=== PATIENT | female | born 1995 | race Caucasian/White ===

== ENCOUNTER → 2018-03-17 | Outpatient (CLI) | payer BC ==
--- NOTE | 2018-03-17 15:01 | US ---
EXAMINATION TYPE: US thyroid st tissue head/neck DATE OF EXAM: 03/17/2018 COMPARISON: NONE CLINICAL HISTORY: E04.9 ENLARGED THYROID. no prev issues GLAND SIZE: Right Lobe: 4.2 x 1.3 x 1.6 cm Overall Parenchyma: homogenous Left Lobe: 4.2 x 1.2 x 1.5 cm Overall Parenchyma: homogeneous Isthmus Thickness: 0.3 cm NODULES RIGHT: # of nodules measured on right: 0 LEFT: # of nodules measured on left: 0 ISTHMUS: # of nodules measured in the isthmus: 0 Bilateral neck scanned, no evidence of lymphadenopathy. IMPRESSION: No distinct abnormality appreciated.
== END | disposition home or self-care (01) ==
LOC: RADUSWWP 13:38
PROVIDERS: ATTEND Obstetrics & Gynecology
DX: E04.9 Nontoxic goiter, unspecified (principal)
CPT/HCPCS: 76536

== ENCOUNTER 2018-09-28 15:43 | Inpatient (IN) | payer OTHER ==
--- NOTE | 2018-09-28 17:48 | P.HPOB ---
History of Present Illness H&P Date: 09/28/18 Chief Complaint: IUP at 38 3/sevenths weeks, active labor This is a pleasant 23-year-old 1 para 0 at 38-3/7 weeks that presents to labor and delivery with complaints of contractions that started this morning and recently got worse. Patient states she's been ruby every 5 minutes and there increasingly uncomfortable. Patient denies loss of fluid vaginal bleeding, and notes the fetus has been active. Patient is been receiving routine care with Dr. Wallis On blood work a blood type of O+, rubella immune, RPR nonreactive, hepatitis B surface antigen negative, HIV negative, GBS negative on 09/09/18. Review of Systems Constitutional: Denies chills, Denies fatigue, Denies fever Ears, nose, mouth and throat: Denies headache Cardiovascular: Denies edema, Denies leg edema Respiratory: Denies cough, Denies dyspnea Gastrointestinal: Denies constipation, Denies diarrhea, Denies nausea, Denies vomiting Genitourinary: Reports Past Medical History History of Any Multi-Drug Resistant Organisms: None Reported Smoking Status: Never smoker Medications and Allergies Home Medications Medication Instructions Recorded Confirmed Type Pnv No.95/Ferrous Fum/Folic AC 1 tab PO DAILY 09/28/18 09/28/18 History [ Multivitamin Tablet] Allergies Allergy/AdvReac Type Severity Reaction Status Date / Time No Known Allergies Allergy Verified 09/28/18 15:54 Exam Osteopathic Statement: *. No significant issues noted on an osteopathic structural exam other than those noted in the History and Physical/Consult. Intake and Output 09/28/18 09/28/18 09/28/18 06:59 14:59 22:59 Other: Weight 64.093 kg Targeted physical exam was performed and general this is a well-nourished well- developed female in no acute distress, she is uncomfortable when contractions, proximal labor 5 minutes. Patient is noted to have nonlabored breathing, abdomen is gravid and appropriate for gestational age, on cervical exam she is 6/100/-1 amniotomy was performed and clear fluid was obtained. Assessment and Plan (1) Term Current Visit: Yes Status: Acute Code(s): Z34.80 - ENCOUNTER FOR SUPRVSN OF NORMAL , UNSP TRIMESTER SNOMED Code(s): 26306918 (2) Active labor Current Visit: Yes Status: Acute Code(s): MYT6275 - SNOMED Code(s): 98628907 Plan: Patient is admitted to labor and delivery anticipate spontaneous vaginal delivery.
[2018-09-28] MEDS ORDERED: METHYLERGONOVINE 0.2 MG/ML 1 ML AMP IM PRN (18:07)
[2018-09-28] MEDS ORDERED: CARBOPROST TROMETHAMINE 250 MCG/ML 1 ML AMP IM PRN (18:07)
[2018-09-28] MEDS ORDERED: TERBUTALINE 1 MG/ML VIAL SQ PRN (18:07)
[2018-09-28] MEDS ORDERED: LIDOCAINE 0.5% (PF) 5 MG/ML (50 ML SDV) SQ PRN (18:07)
[2018-09-28] MEDS ORDERED: OXYTOCIN 10 UNIT/ML 1 ML VIAL IM PRN (18:07)
[2018-09-28] MEDS ORDERED: LACTATED RINGERS 1,000 ML IV SCH (18:15)
[2018-09-28 18:23] LABS: Basophils % (A) 0 %; Eosinophils % (A) 0 %; HCT 43.4 % (34.0-46.0); HGB 14.2 gm/dL (11.4-16.0); Lymphocytes # (A) 1.3 k/uL (1.0-4.8); Lymphocytes % (A) 10 %; MCH 30.6 pg (25.0-35.0); MCHC 32.7 g/dL (31.0-37.0); MCV 93.6 fL (80.0-100.0); Mean Platelet Volume 9.2; Monocytes # (A) 0.3 k/uL (0-1.0); Monocytes % (A) 3 %; Neutrophils # (A) 11.3 k/uL (1.3-7.7); Neutrophils % (A) 86 %; Platelet Count 239 k/uL (150-450); RBC 4.63 m/uL (3.80-5.40); RDW 13.3 % (11.5-15.5); WBC 13.2 k/uL (3.8-10.6)
[2018-09-28 19:12] VITALS: BMI 22.8
[2018-09-28] MEDS ORDERED: SIMETHICONE 80 MG CHEWABLE PO PRN (20:32)
[2018-09-28] MEDS ORDERED: LANOLIN CREAM 5 GM TUBE TOPICAL PRN (20:32)
[2018-09-28] MEDS ORDERED: HYDROCORTISONE 2.5% RECTAL CREAM 30 GM TUBE RECTAL PRN (20:32)
[2018-09-28] MEDS ORDERED: IBUPROFEN 600 MG TAB PO PRN (20:32)
[2018-09-28] MEDS ORDERED: diphenhydrAMINE 50 MG/ML 1 ML VIAL IVP PRN ×2 (20:32)
[2018-09-28] MEDS ORDERED: BENZOCAINE/MENTHOL SPRAY 1 GM/SPRAY AEROSOL TOPICAL PRN (20:32)
[2018-09-28] MEDS ORDERED: ACETAMINOPHEN TAB 325 MG TAB PO PRN (20:32)
[2018-09-28] MEDS ORDERED: diphenhydrAMINE 50 MG CAP PO PRN (20:32)
[2018-09-28] MEDS ORDERED: ZOLPIDEM 5 MG TAB PO PRN (20:32)
[2018-09-28] MEDS ORDERED: WITCH HAZEL 1 EACH MED..PAD TOPICAL PRN (20:32)
[2018-09-28] MEDS ORDERED: diphenhydrAMINE 25 MG CAP PO PRN (20:32)
--- NOTE | 2018-09-28 20:36 | P.PROBDLV ---
Vaginal Delivery Note - . Vaginal Delivery Note: This is a 23-year-old 1 para 0 that presented to labor and delivery at 38-3/7 weeks in active labor. Patient was admitted amniotomy was performed and clear fluid was obtained. Patient progressed to complete began pushing and had a normal spontaneous vaginal delivery of a viable female at 1952, weight of 6 lbs. 14 oz. Apgars were noted to be 9 and 9 at one and 5 minutes or sexually. The umbilical cord was then doubly clamped and cut and the placenta was delivered spontaneously intact with a three-vessel cord being noted. On inspection the patient's vaginal vault bilateral labial sulcus tears were noted in addition to a first-degree midline perineal tear. These were repaired in the usual fashion with 3-0 repeat. Uterus was noted to be firm and below the umbilicus at this time. Estimated blood loss 300 mL. Patient and infant tolerated delivery well and are resting comfortably.
[2018-09-28] MEDS ORDERED: OXYTOCIN 20 UNITS/1000 ML NS 1,000 ML IV SCH (20:45)
[2018-09-29 06:15] LABS: Basophils % (A) 0 %; Eosinophils % (A) 0 %; HCT 34.7 % (34.0-46.0); HGB 11.9 gm/dL (11.4-16.0); Lymphocytes # (A) 1.3 k/uL (1.0-4.8); Lymphocytes % (A) 11 %; MCH 31.8 pg (25.0-35.0); MCHC 34.4 g/dL (31.0-37.0); MCV 92.4 fL (80.0-100.0); Mean Platelet Volume 9.8; Monocytes # (A) 0.5 k/uL (0-1.0); Monocytes % (A) 4 %; Neutrophils # (A) 9.6 k/uL (1.3-7.7); Neutrophils % (A) 82 %; Platelet Count 215 k/uL (150-450); RBC 3.75 m/uL (3.80-5.40); RDW 13.3 % (11.5-15.5); WBC 11.7 k/uL (3.8-10.6)
[2018-09-29] MEDS ORDERED: SENNOSIDES-DOCUSATE SODIUM 1 EACH TAB PO SCH (08:00)
--- NOTE | 2018-09-29 08:18 | P.DS ---
Providers Date of admission: 09/28/18 17:21 Expected date of discharge: 09/29/18 Attending physician: Wilam Roca Primary care physician: Stated None Hospital Course: This is a 23-year-old white female 1 para 0 EDC 10/09/2018 at 38-3/7 weeks' gestation. Patient presented with spontaneous amniorrhexis which occurred at home, clear fluid. She was judged to be in active labor and therefore admitted. Her course is remarkable for negative group B strep cultures, blood type O positive, rubella status immune. Please see dictated history and physical for details. Patient progressed well and went on to deliver vaginally a liveborn female infant with scores of 9 and 9 at one and 5 minutes respectively. Infant weighed 6 lbs. 14 oz. or 3120 g. There was a small first-degree perineal laceration easily repaired, and an estimated blood loss of 300 mL's. Please see dictated delivery note for details. This morning the patient is doing well. She is voiding, ambulating and passing flatus without difficulty. Vital signs are stable and she is afebrile. Fundus is firm and in the midline, symmetric and 18 week size. Extremities are negative for edema. Breast-feeding is going well. There is minimal to moderate lochia rubra. No complaints of pain. Patient is being discharged home in very good condition. She will follow-up with me in the office in 6 weeks. I have reminded her no intercourse, tampons or douching. We have briefly discussed options for contraception and we will discuss this further in the office. She will use [id number] Motrin or Advil as needed for pain, as directed by the bottle. Call with any fevers shakes or chills, foul smelling or copious lochia, with the passage of large blood clots, with any pain not alleviated by [id number] products, or indeed with any concerns. Patient Condition at Discharge: Good Plan - Discharge Summary Discharge Rx Participant: No New Discharge Prescriptions: No Action Pnv No.95/Ferrous Fum/Folic AC [ Multivitamin Tablet] 1 tab PO DAILY Discharge Medication List Pnv No.95/Ferrous Fum/Folic AC [ Multivitamin Tablet] 1 tab PO DAILY [History] Follow up Appointment(s)/Referral(s): Jerri Wallis MD [STAFF PHYSICIAN] - 6 Weeks Discharge Disposition: HOME SELF-CARE
[2018-09-29] MEDS ORDERED: PRENATAL VIT-IRON-FOLIC ACID 1 EACH CAP PO SCH (09:00)
[2018-09-29 21:04] VITALS: BP 112/74; PULSE 95; RESP 18; TEMP 98.3
== END 2018-09-29 20:45 | disposition home or self-care (01) | DRG 807 ==
LOC: FBPOP 15:43 → 4FBP 17:21
PROVIDERS: ADMIT Obstetrics & Gynecology Obstetrics; ATTEND Obstetrics & Gynecology Obstetrics
PROC: 0HQ9XZZ Repair Perineum Skin, External Approach (ICD-10-PCS; principal; 2018-09-28)
PROC: 10E0XZZ Delivery of Products of Conception, External Approach (ICD-10-PCS; principal; 2018-09-28)
DX: O70.0 First degree perineal laceration during delivery (principal); Z37.0 Single live birth; Z3A.38 38 weeks gestation of pregnancy
CPT/HCPCS: 59025; 85025; 86850; 86900; 86901; 99213

== ENCOUNTER → 2020-03-30 | Outpatient (CLI) | payer BC ==
--- NOTE | 2020-03-30 17:35 | ECHOF ---
Referral Reason:R07.9 Chest pain MEASUREMENTS -------- HEIGHT: 165.1 cm WEIGHT: 50.8 kg BP: RVIDd: 2.3 cm (< 3.3) IVSd: 0.6 cm (0.6 - 1.1) LVIDd: 4.4 cm (3.9 - 5.3) LVPWd: 0.9 cm (0.6 - 1.1) IVSs: 1.0 cm LVIDs: 3.4 cm LVPWs: 1.1 cm LA Diam: 3.4 cm (2.7 - 3.8) LAESV Index (A-L): 19.20 ml/m Ao Diam: 2.3 cm (2.0 - 3.7) AV Cusp: 2.0 cm (1.5 - 2.6) MV EXCURSION: 13.601 mm (> 18.000) MV EF SLOPE: 105 mm/s (70 - 150) EPSS: 0.4 cm MV E Jalil: 0.89 m/s MV DecT: 179 ms MV A Jalil: 0.67 m/s MV E/A Ratio: 1.33 RAP: 5.00 mmHg RVSP: 17.13 mmHg FINDINGS -------- Sinus rhythm. This was a technically good study. LV size, wall thickness and systolic function are normal, with an EF greater than 55%. The left frederic tricular size is normal. The right ventricle is normal in size. The left atrial size is normal. The right atrial size is normal. The aortic valve is trileaflet, and appears structurally normal. No aortic stenosis or regurgitation. Mild mitral regurgitation is present. Mild tricuspid regurgitation present. Right ventricular systolic pressure is normal at < 35 mmHg. There is no pulmonic regurgitation present. The aortic root size is normal. There is no pericardial effusion. CONCLUSIONS -------- 1. Sinus rhythm. 2. LV size, wall thickness and systolic function are normal, with an EF greater than 55%. 3. The left ventricular size is normal. 4. The right ventricle is normal in size. 5. The left atrial size is normal. 6. The right atrial size is normal. 7. Mild mitral regurgitation is present. 8. Mild tricuspid regurgitation present. 9. Right ventricular systolic pressure is normal at < 35 mmHg. LICENSED OCCUPATIONAL THERAPIST: Alpa Mackey RDCS
== END | disposition home or self-care (01) ==
LOC: RADECHMAIN 15:40
PROVIDERS: ATTEND Family Medicine
DX: I08.1 Rheumatic disorders of both mitral and tricuspid valves (principal)
CPT/HCPCS: 93306

== ENCOUNTER 2021-08-21 13:31 | Outpatient (CLI) | payer BC, OTHER ==
[2021-08-21 15:07] VITALS: BP 126/69; PULSE 90; RESP 18; TEMP 98.4
--- NOTE | 2021-09-07 08:52 | P.MSEPDOC ---
Presenting Problems - Arrival Data Date of Arrival on Unit: 08/21/21 Time of Arrival on Unit: 13:31 Mode of Transport: Ambulatory - Complaint OB-Reason for Admission/Chief Complaint: Pain Comment: Sharp back and pelvic pain rated 10/10 since 08/20/21, unrelieved by Tylenol. Medical History - Information : 2 Para: 1 Term: 1 : 0 Abortions: Spontaneous or Elective: 0 Number of Living Children: 1 - Gestational Age Gestational Age by MELANY (wks/days): 21 Weeks and 2 Days Review of Systems - Review of Systems Constitutional: No problems Breast: No problems ENT: No problems Cardiovascular: No problems Respiratory: No problems Gastrointestinal: No problems Genitourinary: No problems Musculoskeletal: No problems Neurological: No problems Skin: No problems Vital Signs - Temperature Temperature: 98.4 F Temperature Source: Temporal Artery Scan - Pulse Pulse Oximetery Pulse Rate: 90 Pulse Assessment Method: Pulse Oximetry - Respirations Respiratory Rate: 18 Oxygen Delivery Method: Room Air O2 Sat by Pulse Oximetry: 100 - Blood Pressure Right Arm Sitting Blood Pressure: 126/69 Blood Pressure Mean: 88 Blood Pressure Source: Automatic Cuff Medical Screen Scoring - Cervical Exam Dilation (cm): 0 Effacement (%): 0 Station: -4 Membranes: Intact - Assessment - Baby A Baseline FHR: 150 Physician Notification - Physician Notified Physician Notified Date: 08/21/21 Physician Notified Time: 14:25 Physician: Jerri Wallis Order Received: No - Notification Comment Comment: Dr. Wallis called in the office to report pt arrival to triage and discuss POC. RN discussed pain and aggravating factors. Dr. Wallis requesting SVE at this time to r/o PTL. RN call pt PCP to make an appt for next business day, and requested to be alerted if pt notable to be seen by PCP. Pt requests to be seen in the ED immediately, will call PCP if follow up is needed. Dr. Wallis advised of pt's request, physician in agreemtn with POC at this time. Maternal Triage Index - Maternal Triage Index Presenting for scheduled procedure w/no complaint: No - Stat/Priority 1 Stat Priority 1: No - Urgent/Priority 2 Urgent Priority 2: No - Prompt/Priority 3 Prompt Priority 3: No - Non-Urgent/Priority 4 Non-Urgent Priority 4: Yes Criteria Met for Priority 4: Back and pelvic pain Disposition - Disposition OB Disposition: Physician follow up in office, Transfer to other dept./facility Transferred to:: ED Discharge Date: 08/21/21 Discharge Time: 14:43 I agree with the RN Medical Screening Exam: Yes Case reviewed; plan agreed upon as documented in EMR&OBIX.: Yes Diagnosis: UNSPECIFIED ABDOMINAL PAIN
== END 2021-08-21 14:43 | disposition home or self-care (01) ==
LOC: FBPOP 13:31
PROVIDERS: ATTEND Obstetrics & Gynecology
DX: O26.892 Other specified pregnancy related conditions, second trimester (principal); R10.9 Unspecified abdominal pain; Z3A.21 21 weeks gestation of pregnancy
CPT/HCPCS: 99213

== ENCOUNTER 2021-08-21 14:50 | Emergency (ER) | payer BC, OTHER ==
[2021-08-21 15:46] VITALS: TEMP 98.4
[2021-08-21 16:40] LABS: Amorphous Sediment,Urine Rare /hpf; Appearance,Urine Cloudy (Clear); Bilirubin,Urine Negative (Negative); Blood,Urine Trace (Negative); Calcium Oxalate Crystals,Urine Occasional /hpf; Color,Urine Light Yellow; Glucose,Urine (UA) Negative (Negative); Ketones,Urine Negative (Negative); Leukocyte Esterase,Urine Negative (Negative); Mucus,Urine Rare /hpf; Nitrite,Urine Negative (Negative); Protein,Urine Negative (Negative); RBC,Urine 1 /hpf (0-5); Specific Gravity,Urine 1.017 (1.001-1.035); Squamous Epithelial Cell,Urine <1 /hpf (0-4); Urobilinogen,Urine <2.0 mg/dL (<2.0); WBC,Urine <1 /hpf (0-5)
[2021-08-21] MEDS ORDERED: ACETAMINOPHEN TAB 500 MG TAB PO STA (18:45)
[2021-08-21] MEDS ORDERED: SODIUM CHLORIDE 0.9% 1,000 ML IV STA (18:45)
--- NOTE | 2021-08-21 18:52 | ED ---
General Adult HPI - General Chief complaint: Back Pain/Injury Stated complaint: Back Pain(21 weeks preg.-sent from mother baby) Time Seen by Provider: 08/21/21 18:33 Source: patient, RN notes reviewed Mode of arrival: wheelchair Limitations: no limitations - History of Present Illness Initial comments: 26-year-old female presents to the emergency room for a chief complaint of left flank pain. Patient is 21 weeks . Patient states mid back pain that radiates into the left pelvis area. No vaginal bleeding. Patient was evaluated by OB services upstairs and her WIRE STRETCHER is aware. Patient had requested to come to the ER. Patient denies nausea or vomiting. Denies diarrhea or fevers. States it has been ongoing since yesterday but worsening.Patient has no other complaints at this time including shortness of breath, chest pain, nausea or v omiting, headache, or visual changes. - Related Data Home Medications Medication Instructions Recorded Confirmed Albuterol Sulfate [Proair Hfa] 2 puff INHALATION RT-Q4H PRN 08/21/21 08/21/21 Aspirin 81 mg PO DAILY 08/21/21 08/21/21 Folic Acid 1 tab PO DAILY 08/21/21 08/21/21 Allergies Allergy/AdvReac Type Severity Reaction Status Date / Time No Known Allergies Allergy Verified 08/21/21 18:52 Review of Systems ROS Statement: Those systems with pertinent positive or pertinent negative responses have been documented in the HPI. ROS Other: All systems not noted in ROS Statement are negative. Past Medical History Past Medical History: No Reported History History of Any Multi-Drug Resistant Organisms: None Reported Past Surgical History: No Surgical Hx Reported Past Anesthesia/Blood Transfusion Reactions: No Reported Reaction Past Psychological History: No Psychological Hx Reported Smoking Status: Never smoker Past Alcohol Use History: None Reported Past Drug Use History: None Reported - Past Family History Father Family Medical History: No Reported History General Exam Limitations: no limitations General appearance: alert, in no apparent distress Head exam: Present: atraumatic Eye exam: Present: normal appearance, PERRL, EOMI. Absent: scleral icterus, conjunctival injection ENT exam: Present: normal exam, mucous membranes moist Neck exam: Present: normal inspection, full ROM. Absent: tenderness Respiratory exam: Present: normal lung sounds bilaterally. Absent: respiratory distress, wheezes Cardiovascular Exam: Present: regular rate, normal rhythm, normal heart sounds GI/Abdominal exam: Present: soft, normal bowel sounds, other (gravid abdomen). Absent: distended, tenderness Neurological exam: Present: alert Course Vital Signs 08/21/21 08/21/21 15:43 21:09 Temperature 98.4 F Pulse Rate 78 91 Respiratory 20 16 Rate Blood Pressure 107/70 100/62 O2 Sat by Pulse 100 99 Oximetry Medical Decision Making - Medical Decision Making Vitals are stable. No abdominal tenderness. CBC and CMP are unremarkable. Lipase is normal. Urinalysis does not show any significant evidence of infection. ultrasound of the kidneys and bladder revealed bilateral Kremlin however no evidence for renal obstruction or mass. There is echogenicity in the bladder that could relate to bladder infection however urinalysis is unremarkable. Ultrasound of the pelvis reveals a gestational age of 21 weeks and 6 days. Maternal ovaries not seen however on reevaluation patient's pain significantly improved with Tylenol. States she also has no pain. She states her pain does worsen with movement and walking. Pain is likely musculoskeletal in nature. At this time we are recommending strict return parameters and close outpatient follow-up. She has a already been seen and cleared by W[facility] STRETCHER at the hospital. She will return here for any worsening symptoms CONTINUE taking Tylenol for pain as it was very effective for her here - Lab Data Result diagrams: 08/21/21 19:09 08/21/21 19:09 Lab Results 08/21/21 08/21/21 08/21/21 Range/Units 16:20 19:09 19:09 WBC 6.9 (3.8-10.6) k/uL RBC 4.01 (3.80-5.40) m/uL Hgb 12.4 (11.4-16.0) gm/dL Hct 37.4 (34.0-46.0) % MCV 93.2 (80.0-100.0) fL MCH 31.0 (25.0-35.0) pg MCHC 33.2 (31.0-37.0) g/dL RDW 13.6 (11.5-15.5) % Plt Count 197 (150-450) k/uL MPV 9.4 Neutrophils % 71 % Lymphocytes % 22 % Monocytes % 4 % Eosinophils % 1 % Basophils % 0 % Neutrophils # 4.9 (1.3-7.7) k/uL Lymphocytes # 1.5 (1.0-4.8) k/uL Monocytes # 0.2 (0-1.0) k/uL Eosinophils # 0.1 (0-0.7) k/uL Basophils # 0.0 (0-0.2) k/uL Sodium 135 L (137-145) mmol/L Potassium 4.1 (3.5-5.1) mmol/L Chloride 106 (98-107) mmol/L Carbon Dioxide 22 (22-30) mmol/L Anion Gap 7 mmol/L BUN 12 (7-17) mg/dL Creatinine 0.50 L (0.52-1.04) mg/dL Est GFR (CKD-EPI)AfAm >90 (>60 ml/min/1.73 sqM) Est GFR (CKD-EPI)NonAf >90 (>60 ml/min/1.73 sqM) Glucose 84 (74-99) mg/dL Calcium 9.0 (8.4-10.2) mg/dL Total Bilirubin 0.2 (0.2-1.3) mg/dL AST 16 (14-36) U/L ALT 9 (4-34) U/L Alkaline Phosphatase 51 (38-126) U/L Total Protein 6.8 (6.3-8.2) g/dL Albumin 3.7 (3.5-5.0) g/dL Amylase 68 (30-110) U/L Lipase 115 (23-300) U/L Urine Color Light Yellow Urine Appearance Cloudy H (Clear) Urine pH 6.0 (5.0-8.0) Ur Specific [place] 1.017 (1.001-1.035) Urine Protein Negative (Negative) Urine Glucose (UA) Negative (Negative) Urine Ketones Negative (Negative) Urine Blood Trace H (Negative) Urine Nitrite Negative (Negative) Urine Bilirubin Negative (Negative) Urine Urobilinogen <2.0 (<2.0) mg/dL Ur Leukocyte Esterase Negative (Negative) Urine RBC 1 (0-5) /hpf Urine WBC <1 (0-5) /hpf Ur Squamous Epith Cells <1 (0-4) /hpf Calcium Oxalate Crystal Occasional H (None) /hpf Amorphous Sediment Rare H (None) /hpf Urine Mucus Rare H (None) /hpf Disposition Clinical Impression: Back pain Disposition: HOME SELF-CARE Condition: Good Instructions (If sedation given, give patient instructions): Acute Low Back Pain (ED) Additional Instructions: Take tylenol for pain. Follow up with OBGYN and primary care. Return to the ER for any worsening symptoms. Is patient prescribed a controlled substance at d/c from ED?: No Referrals: Chris Arboleda MD [Primary Care Provider] - 1-2 days eJrri Wallis MD [STAFF PHYSICIAN] - 1-2 days Time of Disposition: 21:00
[2021-08-21 19:21] LABS: Basophils % (A) 0 %; Eosinophils # (A) 0.1 k/uL (0-0.7); Eosinophils % (A) 1 %; HCT 37.4 % (34.0-46.0); HGB 12.4 gm/dL (11.4-16.0); Lymphocytes # (A) 1.5 k/uL (1.0-4.8); Lymphocytes % (A) 22 %; MCHC 33.2 g/dL (31.0-37.0); MCV 93.2 fL (80.0-100.0); Mean Platelet Volume 9.4; Monocytes # (A) 0.2 k/uL (0-1.0); Monocytes % (A) 4 %; Neutrophils # (A) 4.9 k/uL (1.3-7.7); Neutrophils % (A) 71 %; Platelet Count 197 k/uL (150-450); RBC 4.01 m/uL (3.80-5.40); RDW 13.6 % (11.5-15.5); WBC 6.9 k/uL (3.8-10.6)
[2021-08-21 19:26] LABS: ALT 9 U/L (4-34); AST 16 U/L (14-36); African American GFR (CKD) >90 (>60 ml/min/1.73 sqM); Albumin 3.7 g/dL (3.5-5.0); Alkaline Phosphatase 51 U/L (38-126); Amylase 68 U/L (30-110); Anion Gap 7 mmol/L; Blood Urea Nitrogen 12 mg/dL (7-17); Carbon Dioxide 22 mmol/L (22-30); Chloride 106 mmol/L (98-107); Glucose 84 mg/dL (74-99); Lipase 115 U/L (23-300); Non-African American GFR(CKD) >90 (>60 ml/min/1.73 sqM); Potassium 4.1 mmol/L (3.5-5.1); Sodium 135 mmol/L (137-145); Total Bilirubin 0.2 mg/dL (0.2-1.3); Total Protein 6.8 g/dL (6.3-8.2)
--- NOTE | 2021-08-21 20:18 | US ---
EXAMINATION TYPE: US kidneys/renal and bladder DATE OF EXAM: 08/21/2021 COMPARISON: NONE CLINICAL HISTORY: pain flank. Flank pain, worse on the left side. EXAM MEASUREMENTS: Right Kidney: 11.9 x 6.3 x 4.7 cm Left Kidney: 11.8 x 4.8 x 4.8 cm Right Kidney: Hydronephrosis appearance medially. Left Kidney: Hydronephrosis appearance medially Bladder: Internal echoes are seen. Bilateral Jets seen: Yes IMPRESSION: There is bilateral hydronephrosis. There are bilateral ureteral jets demonstrated and no evidence for renal obstruction. No evidence of renal mass. There is echogenicity in the bladder that could relate to bladder infection.
--- NOTE | 2021-08-21 20:21 | US ---
EXAMINATION TYPE: US OB >= 14 wk fetus DATE OF EXAM: 08/21/2021 COMPARISON: None CLINICAL HISTORY: pain flank Flank pain. . TECHNIQUE: Transabdominal (TA) GESTATIONAL AGE / DATING Physician Established: (21 weeks/2 days) EDC: 12/30/2021 Dates by LMP: 03/25/2021 (21 weeks/2 days) EDC: 12/30/2021 Dates by First Scan: This is first scan at this facility. Dates by Current Scan: (21 weeks/6 days) EDC: 12/26/2021 SURVEY IUP: Single PLACENTA: Anterior. Appears to be slightly heterogeneous. PREVIA: No Previa TRISHA: 13.46 cm Normal CERVICAL LENGTH (transabdominal: norm > 3.0cm): 3.47 cm BIOMETRY PRESENTATION: Breech BPD: 5.23 cm 21 weeks / 6 days HC: 19.67 cm 21 weeks / 6 days AC: 17.50 cm 22 weeks / 3 days FL: 3.85 cm 22 weeks / 2 days ESTIMATED WEIGHT IN GRAMS: 496.02 grams ESTIMATED WEIGHT IN LBS/OZ: 1 lb. 1 oz. WEIGHT PERCENTAGE BASED ON ESTABLISHED DATES: 92.2% HC/AC: 1.1 FL/AC: 21.99 Normal HEART RATE: 157 bpm RHYTHM: Normal Unable to visualize ovaries transabdominally at this time to rule out torsion as requested. Head measurements slightly limited due to constant movement. IMPRESSION: Maternal ovaries not seen. The ultrasound gestational age is 21 weeks and 6 days. The MELANY is 12/26/2021.
[2021-08-21 21:10] VITALS: BP 100/62; PULSE 91; RESP 16
== END 2021-08-21 21:09 | disposition home or self-care (01) ==
LOC: EC 14:50
DX: M54.6 Pain in thoracic spine (principal); O26.892 Other specified pregnancy related conditions, second trimester; Z3A.21 21 weeks gestation of pregnancy; Z79.82 Long term (current) use of aspirin; Z79.51 Long term (current) use of inhaled steroids
CPT/HCPCS: 36415; 76770; 76805; 80053; 81001; 82150; 83690; 85025; 96360; 99284

== ENCOUNTER 2021-12-11 01:14 | Outpatient (CLI) | payer OTHER ==
[2021-12-11 03:07] VITALS: BP 130/82; PULSE 76; RESP 16; TEMP 97.9
--- NOTE | 2021-12-27 08:57 | P.MSEPDOC ---
Presenting Problems - Arrival Data Date of Arrival on Unit: 12/11/21 Time of Arrival on Unit: 01:14 Mode of Transport: Ambulatory - Complaint OB-Reason for Admission/Chief Complaint: Possible Onset of Labor Comment: pt reports to triage with complaints of contractions about every 15 mins since 2pm. Pt states contractions are increasing in intensity and she has developed chills and lost her mucus plug. Pt reports her last SVE on thursday as being 2/70%. Medical History - Information : 2 Para: 1 Term: 1 : 0 Abortions: Spontaneous or Elective: 0 Number of Living Children: 1 - Gestational Age Gestational Age by MELANY (wks/days): 37 Weeks and 2 Days Review of Systems - Review of Systems Constitutional: No problems Breast: No problems ENT: No problems Cardiovascular: No problems Respiratory: No problems Gastrointestinal: No problems Genitourinary: No problems Musculoskeletal: No problems Neurological: No problems Skin: No problems Vital Signs - Temperature Temperature: 97.9 F Temperature Source: Temporal Artery Scan - Pulse Right Brachial Pulse Rate: 76 Pulse Assessment Method: Automatic Cuff - Respirations Respiratory Rate: 16 Oxygen Delivery Method: Room Air O2 Sat by Pulse Oximetry: 99 - Blood Pressure Right Arm Blood Pressure: 130/82 Blood Pressure Mean: 98 Blood Pressure Source: Automatic Cuff Medical Screen Scoring - Cervical Exam Dilation (cm): 2 Effacement (%): 70 Station: -2 Membranes: Intact - Assessment - Baby A Baseline FHR: 130 Heart Rate - NICHD Category: Category I (Normal) NST: Reactive Physician Notification - Physician Notified Physician Notified Date: 12/11/21 Physician Notified Time: 02:36 Physician: Jerri Wallis New Order Received: Yes - Notification Comment Comment: Dr. Wallis on unit. Report given on reactive NST. Cervical exam of 2/70/-2 that remains unchanged after 1 hour. Patient is not ruby. Vitals WNL. Patient approved for discharge keep scheduled appointment for 12/16/21. Maternal Triage Index - Maternal Triage Index Presenting for scheduled procedure w/no complaint: No - Stat/Priority 1 Stat Priority 1: No - Urgent/Priority 2 Urgent Priority 2: No - Prompt/Priority 3 Prompt Priority 3: No - Non-Urgent/Priority 4 Non-Urgent Priority 4: Yes Criteria Met for Priority 4: 37 2/7 with c/o contractions Disposition - Disposition OB Disposition: Physician follow up in office, Discharge to home Discharge Date: 12/11/21 Discharge Time: 02:50 I agree with the RN Medical Screening Exam: Yes Case reviewed; plan agreed upon as documented in EMR&OBIX.: Yes Comments: Patient was neither seen nor examined by me Diagnosis: FALSE LABOR AT OR AFTER 37 COMPLETED WEEKS OF GESTATION
== END 2021-12-11 02:50 ==
LOC: FBPOP 01:14
PROVIDERS: ATTEND Obstetrics & Gynecology
DX: O47.1 False labor at or after 37 completed weeks of gestation (principal); Z3A.37 37 weeks gestation of pregnancy
CPT/HCPCS: 59025; G0463; 99213

== ENCOUNTER 2021-12-22 01:30 | Outpatient (CLI) | payer OTHER ==
[2021-12-22 04:06] VITALS: BP 125/81; PULSE 81; RESP 16; TEMP 97.9
--- NOTE | 2021-12-25 18:10 | P.MSEPDOC ---
Presenting Problems - Arrival Data Date of Arrival on Unit: 12/22/21 Time of Arrival on Unit: 01:30 Mode of Transport: Wheelchair - Complaint OB-Reason for Admission/Chief Complaint: Possible Onset of Labor Comment: pt presents to triage for c/o cntrx q5 mins since 1999 tonight. Medical History - Information : 2 Para: 1 Term: 1 : 0 Abortions: Spontaneous or Elective: 0 Number of Living Children: 1 - Gestational Age Gestational Age by MELANY (wks/days): 38 Weeks and 6 Days Review of Systems - Review of Systems Constitutional: No problems Breast: No problems ENT: No problems Cardiovascular: No problems Respiratory: No problems Gastrointestinal: No problems Genitourinary: No problems Musculoskeletal: No problems Neurological: No problems Skin: No problems Vital Signs - Temperature Temperature: 97.9 F Temperature Source: Temporal Artery Scan - Pulse Right Brachial Pulse Rate: 81 Pulse Assessment Method: Automatic Cuff - Respirations Respiratory Rate: 16 Oxygen Delivery Method: Room Air O2 Sat by Pulse Oximetry: 99 - Blood Pressure Right Arm Blood Pressure: 125/81 Blood Pressure Mean: 95 Blood Pressure Source: Automatic Cuff Medical Screen Scoring - Cervical Exam Dilation (cm): 3 Effacement (%): 70 Station: -2 Membranes: Intact - Uterine Contractions Frequency From (mins): 4 Frequency To (mins): 10 Duration From (seconds): 30 Duration To (seconds): 90 Intensity: Mild Resting: Soft to palpation - Assessment - Baby A Baseline FHR: 145 Heart Rate - NICHD Category: Category I (Normal) NST: Reactive Physician Notification - Physician Notified Physician Notified Date: 12/22/21 Physician Notified Time: 02:45 Physician: Wilma Roca New Order Received: Yes - Notification Comment Comment: Patient stayed for two hours showing slight cervical change and reports that contractions were not as strong as when she arrived, patient opted to return home at this time. Maternal Triage Index - Maternal Triage Index Presenting for scheduled procedure w/no complaint: No - Stat/Priority 1 Stat Priority 1: No - Urgent/Priority 2 Urgent Priority 2: No - Prompt/Priority 3 Prompt Priority 3: Yes Criteria Met for Priority 3: c/o early labor signs >34 weeks Disposition - Disposition OB Disposition: Discharge to home Discharge Date: 12/22/21 Discharge Time: 04:06 I agree with the RN Medical Screening Exam: Yes Case reviewed; plan agreed upon as documented in EMR&OBIX.: Yes Diagnosis: FALSE LABOR AT OR AFTER 37 COMPLETED WEEKS OF GESTATION
== END 2021-12-22 04:06 | disposition home or self-care (01) ==
LOC: FBPOP 01:30
PROVIDERS: ATTEND Obstetrics & Gynecology Obstetrics
DX: O47.1 False labor at or after 37 completed weeks of gestation (principal); Z3A.38 38 weeks gestation of pregnancy
CPT/HCPCS: 59025; G0463; 99213

== ENCOUNTER 2021-12-24 05:44 | Inpatient (IN) | payer OTHER ==
[2021-12-24] MEDS ORDERED: OXYTOCIN 10 UNIT/ML 1 ML VIAL IM PRN (06:03)
[2021-12-24] MEDS ORDERED: TERBUTALINE 1 MG/ML VIAL SQ PRN (06:03)
[2021-12-24] MEDS ORDERED: METHYLERGONOVINE 0.2 MG/ML 1 ML AMP IM PRN (06:03)
[2021-12-24] MEDS ORDERED: CARBOPROST TROMETHAMINE 250 MCG/ML 1 ML AMP IM PRN (06:03)
[2021-12-24] MEDS ORDERED: LIDOCAINE 1% (PF) 10 MG/ML (30 ML SDV) SQ PRN (06:03)
[2021-12-24] MEDS ORDERED: LACTATED RINGERS 1,000 ML IV SCH (06:15)
[2021-12-24] MEDS ORDERED: OXYTOCIN 30 UNITS/500 ML NS 30 UNIT in SALINE 1 500ML.BAG IV SCH (06:15)
[2021-12-24 06:54] LABS: Basophils % (A) 0 %; Eosinophils # (A) 0.1 k/uL (0-0.7); Eosinophils % (A) 1 %; HCT 40.2 % (34.0-46.0); HGB 13.6 gm/dL (11.4-16.0); Lymphocytes # (A) 1.8 k/uL (1.0-4.8); Lymphocytes % (A) 26 %; MCH 31.7 pg (25.0-35.0); MCHC 33.9 g/dL (31.0-37.0); MCV 93.4 fL (80.0-100.0); Monocytes # (A) 0.3 k/uL (0-1.0); Monocytes % (A) 4 %; Neutrophils # (A) 4.7 k/uL (1.3-7.7); Neutrophils % (A) 67 %; Platelet Count 205 k/uL (150-450); RDW 14.3 % (11.5-15.5)
--- NOTE | 2021-12-24 07:34 | P.HPOB ---
History of Present Illness H&P Date: 12/24/21 Chief Complaint: Here for induction of labor with advanced cervical dilatation This is a 26-year-old 2 para 1 EDC 12/30/2021 at 39 and one sevenths weeks' gestation who presents for induction with advanced cervical dilatation, cervix 5 cm in the office yesterday. Fetus is been active throughout the . Past medical history is essentially negative. Past surgical history is negative. Obstetric history blood type is O+, rubella status immune. VDRL testing, hepatitis B surface antigen, HIV testing, gonorrhea and chlamydia cultures, group B strep culture, urine cultures all negative. One-hour Glucola 148, three-hour GTT within normal limits. Social history patient is a nonsmoker, she is , she denies alcohol or drug use. ALLERGIES none known. Current medications vitamins daily, baby aspirin daily. On exam patient is 5 foot 6 inches, 146 pounds, initial blood pressure 146/93, repeat within normal limits. General physical exam is negative. Chest is clear in all dove. Cervix is 5 cm dilated, 80% effaced, -1 station, vertex presentation. heart rate is consistent with reactive NST. Artificial amniorrhexis reveals clear fluid. Impression: 39 and one sevenths weeks intrauterine , advanced cervical dilatation, here for induction of labor. All signs reassuring. Plan: Analgesic options reviewed. Oxytocin per hospital protocol. Close maternal and surveillance. Anticipate normal spontaneous vaginal delivery. Review of Systems Constitutional: Reports as per HPI Past Medical History Past Medical History: No Reported History History of Any Multi-Drug Resistant Organisms: None Reported Past Surgical History: No Surgical Hx Reported Past Anesthesia/Blood Transfusion Reactions: No Reported Reaction Smoking Status: Never smoker - Past Family History Father Family Medical History: No Reported History Medications and Allergies Home Medications Medication Instructions Recorded Confirmed Type Aspirin 81 mg PO DAILY 08/21/21 12/24/21 History Folic Acid 1 tab PO DAILY 08/21/21 12/24/21 History Iron 18 mg PO DAILY 12/11/21 12/24/21 History Pnv No.95/Ferrous Fum/Folic AC 1 each PO DAILY 12/11/21 12/24/21 History [ Multivitamin Tablet] Allergies Allergy/AdvReac Type Severity Reaction Status Date / Time No Known Allergies Allergy Verified 12/22/21 01:33 Exam Intake and Output 12/23/21 12/24/21 12/24/21 22:59 06:59 14:59 Other: Weight 66.224 kg See dictation under HPI please Results Result Diagrams: 12/24/21 06:10 Assessment and Plan Assessment: 39 and one sevenths weeks intrauterine , advanced cervical dilatation as noted in the office yesterday all signs reassuring. Plan: Oxytocin per hospital protocol. Close maternal and surveillance. Anticipate normal spontaneous vaginal delivery. Time with Patient: Less than 30
[2021-12-24] MEDS ORDERED: HYDROCORTISONE 2.5% RECTAL CREAM 30 GM TUBE RECTAL PRN (09:31)
[2021-12-24] MEDS ORDERED: SIMETHICONE 80 MG CHEWABLE PO PRN (09:31)
[2021-12-24] MEDS ORDERED: diphenhydrAMINE 25 MG CAP PO PRN (09:31)
[2021-12-24] MEDS ORDERED: LANOLIN CREAM 5 GM TUBE TOPICAL PRN (09:31)
[2021-12-24] MEDS ORDERED: ZOLPIDEM 5 MG TAB PO PRN (09:31)
[2021-12-24] MEDS ORDERED: BENZOCAINE/MENTHOL SPRAY 1 GM/SPRAY AEROSOL TOPICAL PRN (09:31)
[2021-12-24] MEDS ORDERED: diphenhydrAMINE 50 MG CAP PO PRN (09:31)
[2021-12-24] MEDS ORDERED: diphenhydrAMINE 50 MG/ML 1 ML VIAL IVP PRN ×2 (09:31)
--- NOTE | 2021-12-24 09:31 | P.PROBDLV ---
Vaginal Delivery Note - . Vaginal Delivery Note: This is a 26-year-old female 2 para 1001 EDC 12/30/2021 at 39 and one sevenths weeks' gestation, who presented for induction with advanced cervical dilatation noted in the office. Blood type is O+, rubella status immune, rupee strep cultures negative. Please see dictated history and physical for details. Patient was admitted, artificial amniorrhexis revealed clear fluid. Oxytocin was started and titrated per hospital protocol. Analgesic was offered and declined. She became completely dilated at 0912 hours. The perineal body was prepped and draped in usual sterile fashion. With excellent maternal expulsive efforts the infant's head delivered occiput anterior and restituted accordingly. There was no nuchal cord noted. The left or anterior shoulder was gently delivered from underneath the pubic symphysis at which time the oropharynx, nasopharynx, and external nares were bulb suctioned. Patient was officially delivered of a liveborn male at 0923 hours. Umbilical cord was doubly clamped and ligated, he was handed to waiting nurses f or evaluation where scores of 9 and 9 at one and 5 minutes respectively were given. Cord blood was sent to the lab. Placenta delivered spontaneously, it was inspected and noted to be intact with trivascular cord at 0924 hours. Uterus is massaged. Careful inspection of the cervix, vagina, perineum, periurethral, and perirectal areas revealed no lacerations or defects. Infant weighs 3145 g or 6 lbs. 15 oz. They are declining circumcision further infant son. Total estimated blood loss 200 mL's. All sponge needle and enhancement counts are correct. Patient and her are allowed to begin the bonding experience in the LDR.
[2021-12-24] MEDS: SENNOSIDES-DOCUSATE SODIUM 1 EACH TAB PO SCH (21:12)
[2021-12-24] MEDS ORDERED: IBUPROFEN 600 MG TAB PO PRN (22:25)
[2021-12-24] MEDS: ACETAMINOPHEN TAB 325 MG TAB PO PRN (22:43)
--- NOTE | 2021-12-25 07:05 | P.DS ---
Providers Date of admission: 12/24/21 05:44 Expected date of discharge: 12/25/21 Attending physician: Jerri Wallis Primary care physician: Stated None Hospital Course: This is a 26-year-old female 2 para 1001 EDC 12/30/2021 at 39 and one sevenths weeks' gestation who presented yesterday with advanced cervical dilatation for induction of labor. is unremarkable, blood type O positive, rubella status immune, group B strep cultures negative. Please see dictated history and physical for details. Analgesic options are reviewed and declined. She went on to swiftly deliver vaginally a liveborn male infant with scores of 9 and 9 at one and 5 minutes respectively. Infant weighed 3145 g or 6 lbs. 15 oz. No perineal lacerations were encountered. Estimated blood loss 200 mL's. Please see dictated delivery note for details. This morning the patient is doing well. She is voiding, ambulating, passing flatus without difficulty. Vital signs are stable and she is afebrile. Fundus is firm and in the midline, symmetric and 18 week size. Extremities are negative for edema. Patient is judged be in very good condition for discharge home. Circumcision is being performed this morning per her request. She will follow-up with me in the office in 6 weeks. She is reminded no intercourse, tampons or douching. She will use [id number] Advil or Aleve as needed for pain. She will call with any fevers shakes or chills, foul smelling or copious lochia, with the passage of large blood clots, with any pain not alleviated by [id number] products, or indeed with any concerns. [place] infant will follow-up with highway maintenance crew worker as per recommendations. Assessment: Well day #1 Patient Condition at Discharge: Good Plan - Discharge Summary Discharge Rx Participant: No New Discharge Prescriptions: No Action Folic Acid 1 tab PO DAILY Aspirin 81 mg PO DAILY Pnv No.95/Ferrous Fum/Folic AC [ Multivitamin Tablet] 1 each PO DAILY Iron 18 mg PO DAILY Discharge Medication List Aspirin 81 mg PO DAILY 08/21/21 [History] Folic Acid 1 tab PO DAILY 08/21/21 [History] Iron 18 mg PO DAILY 12/11/21 [History] Pnv No.95/Ferrous Fum/Folic AC [ Multivitamin Tablet] 1 each PO DAILY 12/11/21 [History] Follow up Appointment(s)/Referral(s): Jerri Wallis MD [STAFF PHYSICIAN] - 6 Weeks
[2021-12-25 07:39] LABS: Basophils % (A) 0 %; Eosinophils # (A) 0.1 k/uL (0-0.7); Eosinophils % (A) 1 %; HCT 44.2 % (34.0-46.0); HGB 14.7 gm/dL (11.4-16.0); Lymphocytes # (A) 2.2 k/uL (1.0-4.8); Lymphocytes % (A) 21 %; MCH 31.7 pg (25.0-35.0); MCHC 33.1 g/dL (31.0-37.0); MCV 95.7 fL (80.0-100.0); Mean Platelet Volume 10.7; Monocytes # (A) 0.3 k/uL (0-1.0); Monocytes % (A) 2 %; Neutrophils # (A) 7.5 k/uL (1.3-7.7); Neutrophils % (A) 73 %; Platelet Count 239 k/uL (150-450); RBC 4.62 m/uL (3.80-5.40); RDW 14.5 % (11.5-15.5); WBC 10.2 k/uL (3.8-10.6)
[2021-12-25] MEDS: SENNOSIDES-DOCUSATE SODIUM 1 EACH TAB PO SCH (08:08)
[2021-12-25] MEDS: ACETAMINOPHEN TAB 325 MG TAB PO PRN (08:09)
[2021-12-25 08:27] VITALS: BP 102/64; PULSE 82; RESP 18; TEMP 98.1
== END 2021-12-25 10:20 | disposition home or self-care (01) | DRG 807 ==
LOC: 4FBP 05:44
PROVIDERS: ADMIT Obstetrics & Gynecology; ATTEND Obstetrics & Gynecology
PROC: 10E0XZZ Delivery of Products of Conception, External Approach (ICD-10-PCS; principal; 2021-12-24)
DX: O80 Encounter for full-term uncomplicated delivery (principal); Z37.0 Single live birth; Z79.82 Long term (current) use of aspirin; Z3A.39 39 weeks gestation of pregnancy
CPT/HCPCS: 85025; 86850; 86900; 86901